=== PATIENT | female | born 1930 | race African-American/Black ===

== ENCOUNTER 2018-11-04 20:00 | Emergency (ER) | payer MEDICARE, BC ==
--- NOTE | 2018-11-04 21:14 | RADIOLOGY REPORT (SQ) ---
EXAM DESCRIPTION: XR FOOT 3 OR MORE VIEWS COMPLETED DATE/TME: 11/04/2018 00:00 CLINICAL HISTORY: 88 years, Female, fell, foot pain COMPARISON: None. NUMBER OF VIEWS: 3 TECHNIQUE: 3 view left foot LIMITATIONS: None. FINDINGS: Osteopenia. Vascular calcifications. Negative for acute fracture or dislocation. Calcaneal spurs. Chronic changes to the ankle mortise. IMPRESSION: Osteopenia. Calcaneal spurs. copyright 2010 [employer]- All Rights Reserved
--- NOTE | 2018-11-04 21:17 | RADIOLOGY REPORT (SQ) ---
EXAM DESCRIPTION: XR ANKLE 3 OR MORE VIEWS COMPLETED DATE/TME: 11/04/2018 00:00 CLINICAL HISTORY: 88 years, Female, fell,ankle pain COMPARISON: None. NUMBER OF VIEWS: 3 TECHNIQUE: 3 view left ankle LIMITATIONS: None. FINDINGS: Osteopenia. Vascular calcifications. Calcaneal spurs. Negative for acute fracture or dislocation. IMPRESSION: No acute osseous abnormality copyright 2010 [employer] All Rights Reserved
--- NOTE | 2018-11-04 21:32 | ER Document Report ---
HPI - HPI Time Seen by Provider: 11/04/18 20:56 Pain Level: 2 Notes: Patient is an 88-year-old female who presents to the emergency department with her daughter and son-in-law with complaints of left ankle pain. She reports that she fell last night when getting ready for bed. She denies any dizziness, states that she tripped over her own feet. She denies striking her head or any loss of consciousness. Her daughter says that at the time she did not have any complaints of pain but this evening she was limping through the house reporting of left ankle pain. Past Medical History - General Information source: Patient, Relative - Daughter - Social History Smoking Status: Never Smoker Frequency of alcohol use: None Drug Abuse: None Lives with: Family Family History: Reviewed & Not Pertinent - Past Medical History Cardiac Medical History: Reports: Hx Hypertension Psychiatric Medical History: Reports: Hx Depression Vertical Provider Document - CONSTITUTIONAL Notes: PHYSICAL EXAMINATION: GENERAL: Well-appearing, well-nourished and in no acute distress. HEAD: Atraumatic, normocephalic. EYES: Pupils equal round extraocular movements intact, conjunctiva are normal. ENT: Nares patent NECK: Normal range of motion LUNGS: No respiratory distress Musculoskeletal: Normal range of motion, tenderness to palpation along medial and lateral ankle, no swelling, erythema or ecchymosis noted. Dorsalis pedis pulse strong, cap refill less than 3 seconds, normal motor and sensation distal to injury. NEUROLOGICAL: Normal speech, normal gait. PSYCH: Normal mood, normal affect. SKIN: Warm, Dry, normal turgor, no rashes or lesions noted. - INFECTION CONTROL TRAVEL OUTSIDE OF THE [place] IN LAST 30 DAYS: No Course - Re-evaluation Re-evalutation: 11/04/18 21:32 X-rays of the foot and ankle are negative. Patient will be placed in ankle stirrup splint for support. Patient discharged home in stable condition. - Vital Signs Vital signs: Temp Pulse Resp BP Pulse Ox 98.5 F 80 20 139/55 H 98 11/04/18 20:20 11/04/18 20:20 11/04/18 20:20 11/04/18 20:20 11/04/18 20:20 Procedures - Immobilization Left ankle Pre-Proc Neuro Vasc Exam: Normal Immobilizer type: Ankle stirrup Performed by: Provider Post-Proc Neuro Vasc Exam: Normal Alignment checked and good: Yes Discharge - Discharge Clinical Impression: Ankle sprain Qualifiers: Encounter type: initial encounter Involved ligament of ankle: unspecified ligament Laterality: left Qualified Code(s): S93.402A - Sprain of unspecified ligament of left ankle, initial encounter Condition: Stable Disposition: HOME, SELF-CARE Instructions: Sprained Ankle ([facility]) Additional Instructions: The x-rays today were normal and do not show any evidence of any fracture or dislocation of the bones. She can wear the ankle stirrup splint to give the ankle some stability. If she has pain or discomfort she can take Tylenol or ibuprofen as directed on the bottle. You may also have her ice and elevate the extremity which may help with pain. Referrals: IVON RATLIFF MD [Primary Care Provider] - Follow up as needed
[2018-11-04 22:07] VITALS: BP 124/62
== END 2018-11-04 22:06 | disposition home or self-care (01) ==
LOC: ER 20:00
DX: S93.402A Sprain of unspecified ligament of left ankle, initial encounter (principal); M25.572 Pain in left ankle and joints of left foot; W01.0XXA Fall on same level from slipping, tripping and stumbling without subsequent striking against object, initial encounter; Y93.89 Activity, other specified; I10 Essential (primary) hypertension
CPT/HCPCS: 99283; 73610; 73630; L1902